=== PATIENT | male | born 1950 | race Caucasian/White ===

== ENCOUNTER 2021-10-19 09:54 | Emergency (ER) | payer OTHER ==
--- OUTSIDE RECORDS SUMMARY | 2021-10-19 09:59 | XMS REPORT | Continuity of Care Document ---
:1950 Author Organization [facility] t Address [address] [place] [address] Care Team Providers Name Role Phone Brandon Villarreal Attending Clinician Unavailable Payers Payer Name Policy Type Policy Number Effective Date Expiration Date S ource Problems This patient has no known problems. Allergies, Adverse Reactions, Alerts This patient has no known allergies or adverse reactions. Medications This patient has no known medications. Procedures This patient has no known procedures. Encounters Start End Encounter Admission Attending Care Care Encounter Source Date/Time Date/Time Type Type Clinicians Facility Department ID 2019-08-22 2019-08-22 Outpatient R Hwang STLS[facility] STLSJB [id number] NPI:[id number] 11:38:00 11:38:00 Sunil, [id number] [id number] Gianni Results Test Description Test Time Test Comments Results Result Sourc e Comments XR Chest Pa Lat Nata Guzman Pt STANDARD Name: SANDI BRO [address] Phys: Gian[place] [address] : 1950 Age: 69 SEX:M [phone] Exam Date: 08/22/19 Status: REG CLI Acct: [id number] Loc: [facility] Pt Unit #: [id number] Report #: [id number] CC: Gianni Villarreal MD IMAGING SERVICES REPORT Order # Category/Exam [id number] RAD/XR Chest Pa Lat STANDARD ([id number]): . Results EXAM: Chest PA and lateral: HISTORY: Bronchitis COMPARISON: None FINDINGS: Heart: Normal cardiac silhouette Aorta: Unremarkable Pulmonary vessels: Normal Costophrenic angles: Costophrenic angles are clear. Lungs: No consolidation or masses. Lungs are hyperinflated. Pneumothorax: No pneumothorax Osseous structures: No osseous abnormalities IMPRESSION: No acute cardiopulmonary process. Reported By: Hanh Wright MD Electronically Signed Date/Time: 08/22/19 1155 Technologist: Dictated Date/Time: 08/22/19 1155 Transcribed Date/Time:
[2021-10-19 11:38] LABS: SARS-COV-2 RT PCR NEGATIVE (NEGATIVE)
--- NOTE | 2021-10-19 11:39 | ER ---
Nurse's Notes [facility] Name: Blair Patterson Age: 71 yrs Sex: Male : 1950 Arrival Date: 10/19/2021 Time: 09:58 Bed 9 Private MD: Diagnosis: Bronchitis, not specified as acute or chronic;Cough Presentation: 10/19 10:08 Chief complaint: Patient states: "I've had bronchitis for almost 3 weeks now." Was seen ph at [place] and prescribed Augmentin and steroids with minimal relief, no respiratory distress noted, speaking in full sentences, reports persistent cough and congestion, denies fever or SOB. Coronavirus screen: Vaccine status: Patient reports receiving the 2nd dose of the covid vaccine. Ebola Screen: No symptoms or risks identified at this time. Initial Sepsis Screen: Does the patient meet any 2 criteria? No. Patient's initial sepsis screen is negative. Does the patient have a suspected source of infection? No. Patient's initial sepsis screen is negative. Risk Assessment: Do you want to hurt yourself or someone else? Patient reports no desire to harm self or others. Onset of symptoms was October 19, 2021. 10:08 Method Of Arrival: Ambulatory ph 10:08 Acuity: JULIO CESAR 3 ph Triage Assessment: 10:30 General: Appears in no apparent distress. comfortable, Behavior is calm, cooperative, ph appropriate for age, Denies fever. Pain: Denies pain. Neuro: No deficits noted. Respiratory: Reports cough that is. Derm: Skin is intact, is healthy with good turgor, Skin is pink, warm \\T\\ dry. Historical: - Allergies: 10:13 No Known Allergies; ph - PMHx: 10:13 None; ph - PSHx: 10:13 None; ph - Immunization history:: Adult Immunizations up to date. - Social history:: Smoking status: Patient denies any tobacco usage or history of. Screenin:15 Abuse screen: Denies threats or abuse. Denies injuries from another. Nutritional ph screening: No deficits noted. Tuberculosis screening: No symptoms or risk factors identified. Fall Risk None identified. Assessment: 12:03 Reassessment: Patient appears in no apparent distress at this time. Patient and/or ss family updated on plan of care and expected duration. Pain level reassessed. Patient is alert, oriented x 3, equal unlabored respirations, skin warm/dry/pink. Vital Signs: 10:08 BP 128 / 85; Pulse 66; Resp 18; Temp 97.0; Pulse Ox 98% on R/A; Weight 108.86 kg; ph Height 6 ft. 0 in. (182.88 cm); 10:08 Body Mass Index 32.55 (108.86 kg, 182.88 cm) ph ED Course: 09:58 Patient arrived in ED. rg4 10:04 Pelon Kasper MD is Attending Physician. xuan 10:12 Triage completed. ph 10:13 Arm band placed on Patient placed in an exam room. ph 10:17 Annabelle Alberto, RN is Primary Nurse. ph 10:24 COVID-19/FLU A+B/RSV (Document "Date of Onset" if Symptomatic) Sent. mb7 11:30 Patient has correct armband on for positive identification. ph 11:39 Bob Mendes MD is Referral Physician. xuan 12:03 No provider procedures requiring assistance completed. Patient did not have IV access ss during this emergency room visit. 12:13 Chest Pa And Lat (2 Views) XRAY In Process Unspecified. EDMS Administered Medications: 11:47 Drug: Zithromax (azithromycin) 500 mg Route: PO; ss 11:55 Follow up: Response: No adverse reaction ph Outcome: 11:39 Discharge ordered by . xuan 12:03 Discharged to home ambulatory. ss 12:03 Condition: good 12:03 Discharge instructions given to patient, Instructed on discharge instructions, follow up and referral plans. medication usage, Demonstrated understanding of instructions, follow-up care, medications, Prescriptions given X 4. 12:03 Patient left the ED. ss Signatures: Dispatcher [employer] EDMS Pelon Kasper MD MD cha Smirch, Shelby, RN RN Annabelle Alberto, CASIE RN Veronica Estrada rg4 Meg Cam mb7
--- NOTE | 2021-10-19 11:39 | EDPHYS ---
Physician Documentation [facility] Name: Blair Patterson Age: 71 yrs Sex: Male : 1950 Arrival Date: 10/19/2021 Time: 09:58 Bed 9 Private MD: ED Physician Pelon Kasper HPI: 10/19 10:53 This 71 yrs old Male presents to ER via Ambulatory with complaints of Cough, xuan Congestion, Runny Nose. 10:53 The patient or guardian reports cough, that is intermittent. Onset: The xuan symptoms/episode began/occurred 7 day(s) ago. Severity of symptoms: At their worst the symptoms were moderate, in the emergency department the symptoms are unchanged. Modifying factors: The symptoms are alleviated by nothing, the symptoms are aggravated by exertion. Associated signs and symptoms: The patient has no apparent associated signs or symptoms. The patient has experienced similar episodes in the past, a few times. Historical: - Allergies: 10:13 No Known Allergies; ph - PMHx: 10:13 None; ph - PSHx: 10:13 None; ph - Immunization history:: Adult Immunizations up to date. - Social history:: Smoking status: Patient denies any tobacco usage or history of. ROS: 10:54 Constitutional: Negative for fever, chills, and weight loss, Eyes: Negative for injury, xuan pain, redness, and discharge, ENT: Negative for injury, pain, and discharge, Neck: Negative for injury, pain, and swelling, Cardiovascular: Negative for chest pain, palpitations, and edema, Abdomen/GI: Negative for abdominal pain, nausea, vomiting, diarrhea, and constipation, Back: Negative for injury and pain, : Negative for injury, bleeding, discharge, and swelling, MS/Extremity: Negative for injury and deformity, Skin: Negative for injury, rash, and discoloration, Neuro: Negative for headache, weakness, numbness, tingling, and seizure, Psych: Negative for depression, anxiety, suicide ideation, homicidal ideation, and hallucinations, Allergy/Immunology: Negative for hives, rash, and allergies, Endocrine: Negative for neck swelling, polydipsia, polyuria, polyphagia, and marked weight changes, Hematologic/Lymphatic: Negative for swollen nodes, abnormal bleeding, and unusual bruising. 10:54 Respiratory: Positive for cough, with green sputum. Exam: 10:54 Constitutional: This is a well developed, well nourished patient who is awake, alert, xuan and in no acute distress. Head/Face: Normocephalic, atraumatic. Eyes: Pupils equal round and reactive to light, extra-ocular motions intact. Lids and lashes normal. Conjunctiva and sclera are non-icteric and not injected. Cornea within normal limits. Periorbital areas with no swelling, redness, or edema. ENT: Nares patent. No nasal discharge, no septal abnormalities noted. Tympanic membranes are normal and external auditory canals are clear. Oropharynx with no redness, swelling, or masses, exudates, or evidence of obstruction, uvula midline. Mucous membranes moist. Neck: Trachea midline, no thyromegaly or masses palpated, and no cervical lymphadenopathy. Supple, full range of motion without nuchal rigidity, or vertebral point tenderness. No Meningismus. Chest/axilla: Normal chest wall appearance and motion. Nontender with no deformity. No lesions are appreciated. Cardiovascular: Regular rate and rhythm with a normal S1 and S2. No gallops, murmurs, or rubs. Normal PMI, no JVD. No pulse deficits. Respiratory: Lungs have equal breath sounds bilaterally, clear to auscultation and percussion. No rales, rhonchi or wheezes noted. No increased work of breathing, no retractions or nasal flaring. Abdomen/GI: Soft, non-tender, with normal bowel sounds. No distension or tympany. No guarding or rebound. No evidence of tenderness throughout. Back: No spinal tenderness. No costovertebral tenderness. Full range of motion. Male : Normal genitalia with no discharge or lesions. Skin: Warm, dry with normal turgor. Normal color with no rashes, no lesions, and no evidence of cellulitis. MS/ Extremity: Pulses equal, no cyanosis. Neurovascular intact. Full, normal range of motion. Neuro: Awake and alert, GCS 15, oriented to person, place, time, and situation. Cranial nerves II-XII grossly intact. Motor strength 5/5 in all extremities. Sensory grossly intact. Cerebellar exam normal. Normal gait. Psych: Awake, alert, with orientation to person, place and time. Behavior, mood, and affect are within normal limits. 10:54 Respiratory: the patient does not display signs of respiratory distress, Respirations: normal, no acute changes, Breath sounds: bronchial sounds, that are mild, are scattered, Respiratory rate: 18 11:31 Musculoskeletal/extremity: ROM: no acute changes, intact in all extremities, xuan Circulation is intact in all extremities. Sensation intact. Compartment Syndrome exam of affected extremity: is normal. DVT Exam: No signs of deep vein thrombosis. no pain, no swelling, no tenderness, negative Homans' sign noted on exam, no appreciated bluish discoloration, no erythema, no increased warmth. Vital Signs: 10:08 BP 128 / 85; Pulse 66; Resp 18; Temp 97.0; Pulse Ox 98% on R/A; Weight 108.86 kg; ph Height 6 ft. 0 in. (182.88 cm); 10:08 Body Mass Index 32.55 (108.86 kg, 182.88 cm) ph MDM: 10:18 Patient medically screened. xuan 10:54 Differential Diagnosis: Obstructed Airway Bronchitis Influenza Upper Respiratory xuan Infection Viral Syndrome Pneumonia. Data reviewed: vital signs, nurses notes, lab test result(s), radiologic studies, plain films. Data interpreted: night monitor: not applicable for this patient encounter. rate is 66 beats/min, rhythm is regular, Pulse oximetry: on room air is 98 %. Test interpretation: by ED physician or midlevel provider: plain radiologic studies. Counseling: I had a detailed discussion with the patient and/or guardian regarding: the historical points, exam findings, and any diagnostic results supporting the discharge/admit diagnosis, lab results, radiology results. 10/19 10:21 Order name: COVID-19/FLU A+B/RSV (Document "Date of Onset" if Symptomatic) xuan 10/19 10:43 Order name: Chest Pa And Lat (2 Views) XRAY xuan Administered Medications: 11:47 Drug: Zithromax (azithromycin) 500 mg Route: PO; ss 11:55 Follow up: Response: No adverse reaction ph Disposition Summary: 10/19/21 11:39 Discharge Ordered Location: Home xuan Problem: new xuan Symptoms: have improved xuan Condition: Stable xuan Diagnosis - Bronchitis, not specified as acute or chronic xuan - Cough xuan Followup: xuan - With: Private Physician - When: 2 - 3 days - Reason: Recheck today's complaints, Continuance of care, Re-evaluation by your physician Followup: xuan - With: - When: 2 - 3 days - Reason: Recheck today's complaints, Continuance of care, Re-evaluation by your physician Discharge Instructions: - Discharge Summary Sheet xuan - Acute Bronchitis, Adult xuan - Cool Mist Vaporizer xuan - Acute Bronchitis, Adult, [id number] xuan - Upper Respiratory Infection, Adult, [id number] xuan - Cough, Adult, Adqw-xj-Ozcy xuan - Cough, Adult [facility] Forms: - Medication Reconciliation Form [facility] - Thank You Letter [facility] - Antibiotic Education [facility] - Prescription Opioid Use [facility] Prescriptions: - Medrol (Neno) 4 mg Oral Tablets, Dose Pack - take 1 tablet by ORAL route as directed - follow package instructions; 1 xuan packet; Refills: 0, Product Selection Permitted - Zithromax 500 mg Oral Tablet - take 1 tablet by ORAL route once daily for 5 days; 5 tablet; Refills: 0, [facility] Product Selection Permitted - Bromfed DM 2-30-10 mg/5 mL Oral syrup - take 7.5 milliliter by ORAL route every 6 hours; 180 milliliter; Refills: 0, [facility] Product Selection Permitted - albuterol sulfate 90 mcg/actuation Inhalation HFA aerosol inhaler - inhale 2 puff by INHALATION route every 6 hours; 1 Pump; Refills: 0, Product xuan Selection Permitted Signatures: Dispatcher [employer] Pelon Carreon MD MD cha Smirch, Shelby, CASIE RN Annabelle Schultz RN RN ph
[2021-10-19] MEDS ORDERED: AZITHROMYCIN 250 MG TAB ONE (11:46)
[2021-10-19 12:22] VITALS: BP 128/85; TEMP 97; O2SAT 98
--- NOTE | 2021-10-19 12:46 | RAD REPORT ---
EXAM DESCRIPTION: Tripp Tolentino (2 Views)10/19/2021 12:11 pm CLINICAL HISTORY: Cough COMPARISON: None FINDINGS: The lungs appear clear of acute infiltrate. The heart is normal size IMPRESSION: No acute abnormalities displayed
== END 2021-10-19 12:03 | disposition home or self-care (01) ==
LOC: ER 09:54
DX: J40 Bronchitis, not specified as acute or chronic (principal); Z20.822 Contact with and (suspected) exposure to COVID-19
CPT/HCPCS: 0241U; 71046; 99284

== ENCOUNTER 2024-06-25 09:11 | Emergency (ER) | payer OTHER ==
[2024-06-25] MEDS ORDERED: BENZONATATE 100 MG CAP PO ONE (09:31)
[2024-06-25] MEDS ORDERED: ALBUTEROL 2.5 MG/3 ML NEB SOL ONE (09:31)
[2024-06-25] MEDS ORDERED: IPRATROPIUM BROM 0.5MG/2.5ML ONE (09:31)
[2024-06-25 10:04] LABS: SARS-CoV-2 Antigen CONTROL BLUE LINE VIS/BG OK; SARS-CoV-2 Antigen Rapid Res Negative (Negative)
--- NOTE | 2024-06-25 10:49 | EDPHYS ---
Physician Documentation [facility] Name: Blair Patterson Age: 74 yrs Sex: Male : 1950 Arrival Date: 06/25/2024 Time: 09:11 Bed 7 Private MD: ED Physician Philippe Husain HPI: 06/25 09:30 This 74 yrs old Male presents to ER via Ambulatory with complaints of Cough. cp 09:30 The patient or guardian reports cough, with productive sputum. cp 09:30 Onset: The symptoms/episode began/occurred 1 week(s) ago. Severity of symptoms: in the emergency department the symptoms are unchanged, despite home interventions. Associated signs and symptoms: Pertinent positives: rhinorrhea, sore throat, Pertinent negatives: fever, vomiting. Historical: - Allergies: 09:25 No Known Allergies; iw - PSHx: 09:25 Appendectomy; Spinal surgery; iw - Immunization history:: Adult Immunizations up to date. - Infectious Disease History:: Denies. - Social history:: Smoking status: Patient/guardian denies using tobacco, but has a distant history of tobacco abuse. ROS: 09:35 Constitutional: Negative for body aches, chills, fever, poor PO intake, cp 09:35 Eyes: Negative for injury, pain, redness, and discharge, cp 09:35 ENT: Negative for drainage from ear(s), ear pain, difficulty swallowing, difficulty handling secretions, 09:35 Cardiovascular: Negative for chest pain, edema, palpitations, 09:35 Respiratory: Positive for cough, "sounds productive", shortness of breath, Negative for wheezing, 09:35 Abdomen/GI: Negative for abdominal pain, vomiting, diarrhea, constipation, 09:35 Neuro: Negative for altered mental status, headache, 09:35 All other systems are negative, Exam: 09:40 Constitutional: The patient appears in no acute distress, alert, awake, cp non-diaphoretic, non-toxic, well developed, well nourished, 09:40 Head/Face: Normocephalic, atraumatic. cp 09:40 Eyes: Periorbital structures: appear normal, Conjunctiva: normal, no exudate, no cp injection, Sclera: no appreciated abnormality, Lids and lashes: appear normal, bilaterally, 09:40 ENT: External ear(s): are unremarkable, Ear canal(s): are normal, clear, TM's: dullness, bilaterally, Nose: is normal, Mouth: Lips: moist, Oral mucosa: moist, Posterior pharynx: Airway: no evidence of obstruction, patent, Tonsils: no enlargement, no exudate, erythema, that is mild, exudate, is not appreciated, 09:40 Neck: ROM/movement: Meningeal signs: are not present, nuchal rigidity, is not appreciated, 09:40 Chest/axilla: Inspection: normal, 09:40 Cardiovascular: Rate: normal, 09:40 Respiratory: the patient does not display signs of respiratory distress, Respirations: normal, no use of accessory muscles, no retractions, labored breathing, is not present, Breath sounds: bronchial sounds, that are mild, are heard diffusely, stridor, is not appreciated, 09:40 Abdomen/GI: Inspection: abdomen appears normal, Palpation: abdomen is soft and non-tender, in all quadrants, 09:40 Neuro: Orientation: is normal, Mentation: is normal, Motor: moves all fours, Gait: is steady, at a normal pace, without difficulty, Vital Signs: 09:23 BP 126 / 81; Pulse 71; Resp 19; Temp 98.5; Pulse Ox 96% on R/A; Weight 108.86 kg; iw Height 6 ft. 0 in. ; Pain 0/10; 10:42 BP 106 / 74; Pulse 87; Resp 18 S; Pulse Ox 93% on R/A; aa5 10:56 Pulse 85; Resp 20 S; Pulse Ox 95% on R/A; aa5 09:23 Body Mass Index 32.55 (108.86 kg, 182.88 cm) iw 09:23 Pain Scale: Adult iw MDM: 09:15 Medical Screening Exam initiated cp 10:48 Data reviewed: vital signs, nurses notes, lab test result(s), radiologic studies, plain cp films, and as a result, I will discharge patient. 10:48 Differential Diagnosis: Bronchitis Influenza Pneumonia. I considered the following cp discharge prescriptions or medication management in the emergency department Medications were administered in the Emergency Department. See MAR. Counseling: I had a detailed discussion with the patient and/or guardian regarding the historical points, exam findings, and any diagnostic results supporting the discharge/admit diagnosis, lab results, radiology results, to return to the emergency department if symptoms worsen or persist or if there are any questions or concerns that arise at home. 10:53 Independent interpretation of the following test(s) in the Emergency Department X-Ray: cp My interpretation is chest xray negative for focal pneumonia. 06/25 09:27 Order name: SARS RAPID; Complete Time: 10:17 cp 06/25 10:17 Interpretation: Reviewed. cp 06/25 09:27 Order name: Strep cp 06/25 10:17 Interpretation: Reviewed. cp 06/25 09:27 Order name: Influenza Screen (a \\T\\ B); Complete Time: 10:32 cp 06/25 10:32 Interpretation: Reviewed. cp 06/25 09:27 Order name: RSV; Complete Time: 10:32 cp 06/25 10:32 Interpretation: Reviewed. cp 06/25 10:07 Order name: Throat Culture EDMS 06/25 09:27 Order name: XRAY Chest Pa And Lat (2 Views) cp Administered Medications: 09:39 Drug: Tessalon Perle PO 200 mg PO once Route: PO; aa5 10:56 Follow up: Response: No adverse reaction aa5 09:39 Drug: Albuterol Inhalation 2.5 mg Inhalation once Route: Inhalation; aa5 09:39 Drug: Ipratropium Inhalation Aerosol 0.5 mg Inhalation once Route: Inhalation; aa5 Disposition: 11:51 Co-signature as Attending Physician, Philippe Husain MD I reviewed the patient's care rn provided by the Advanced Practice Provider and agree with the diagnosis and treatment plan. Disposition Summary: 06/25/24 10:48 Discharge Ordered Notes: Location: Home cp Problem: new cp Symptoms: have improved cp Condition: Stable cp Diagnosis - Cough cp Followup: cp - With: Private Physician - When: 2 - 3 days - Reason: Worsening of condition Discharge Instructions: - Discharge Summary Sheet cp - Cough, Adult cp Forms: - Medication Reconciliation Form cp - Antibiotic Education cp - Prescription Opioid Use cp - Patient Portal Instructions cp - Leadership Thank You Letter cp Prescriptions: - Bromfed DM 2-30-10 mg/5 mL Oral syrup - administer 10 milliliter ORAL route every 6 hours as needed for cold symptoms; cp 240 milliliter; Refills: 0, Product Selection Permitted - albuterol sulfate 90 mcg/actuation Inhalation HFA Aerosol Inhaler - inhale 1 puff INHALATION route every 4-6 hours administer via ventilator; 1 cp unit; Refills: 0, Product Selection Permitted - Zithromax Z-Neno 250 mg Oral Tablet - take 1 tablet ORAL route as directed for 5 days Day 1 - take two (2) tablets cp one time. Day 2, 3, 4 , 5 take one (1) tablet once daily.; 6 tablet; Refills: 0, Product Selection Permitted - Medrol (Neno) 4 mg Oral Tablets, Dose Pack - take 1 tablet ORAL route as directed - follow package instructions; 1 packet; cp Refills: 0, Product Selection Permitted Signatures: Dispatcher [employer] EDMS Rena Ellsworth, CASIE RN Philippe Thompson MD MD rn Calderon, Audri, RN RN aa5 Pelon Benton PA PA cp Corrections: (The following items were deleted from the chart) 09: 09:27 Chest Pa And Lat (2 Views)+RAD.RAD.BRZ ordered. EDMS EDMS 09:27 SARS-COV-2 Antigen Rapid+I.LAB.BRZ ordered. EDMS EDMS 09:27 Group A Streptococcus Rapid Sc+BA.LAB.BRZ ordered. EDMS EDMS : 09:27 Influenza Screen (A \\T\\ B)+BA.LAB.BRZ ordered. EDMS EDMS 09:27 Respiratory Syncytial Virus Ag+BA.LAB.BRZ ordered. EDMS EDMS
--- NOTE | 2024-06-25 10:49 | ER ---
Nurse's Notes [facility] Name: Blair Patterson Age: 74 yrs Sex: Male : 1950 Arrival Date: 06/25/2024 Time: 09:11 Bed 7 Private MD: Diagnosis: Cough Presentation: 06/25 09:23 Chief complaint: Patient states: cough X 1 week and SOB, no fever, + runny nose. iw Coronavirus screen: Client presents with at least one sign or symptom that may indicate coronavirus-19. Ebola Screen: No symptoms or risks identified at this time. Initial Sepsis Screen: Does the patient meet any 2 criteria? No. Patient's initial sepsis screen is negative. Does the patient have a suspected source of infection? No. Patient's initial sepsis screen is negative. Risk Assessment: Do you want to hurt yourself or someone else? Patient reports no desire to harm self or others. Onset of symptoms was June 18, 2024. 09:23 Method Of Arrival: Ambulatory iw 09:23 Acuity: JULIO CESAR 3 iw Historical: - Allergies: 09:25 No Known Allergies; iw - PSHx: : Appendectomy; Spinal surgery; iw - Immunization history:: Adult Immunizations up to date. - Infectious Disease History:: Denies. - Social history:: Smoking status: Patient/guardian denies using tobacco, but has a distant history of tobacco abuse. Screenin:30 [facility] ED Fall Risk Assessment (Adult) History of falling in the last 3 months, aa5 including since admission No falls in past 3 months (0 pts) Confusion or Disorientation No (0 pts) Intoxicated or Sedated No (0 pts) Impaired Gait No (0 pts) Mobility Assist Device Used No (0 pt) Altered Elimination No (0 pt) Score/Fall Risk Level 0 - 2 = Low Risk Oriented to surroundings, Maintained a safe environment, Educated pt \T\ family on fall prevention, incl call for assistance when getting out of bed. Abuse screen: Denies threats or abuse. Nutritional screening: No deficits noted. Tuberculosis screening: No symptoms or risk factors identified. Assessment: 09:30 General: Appears uncomfortable, Behavior is calm, cooperative. Pain: Denies pain. aa5 Neuro: Level of Consciousness is awake, alert, obeys commands, Oriented to person, place, time, situation. Cardiovascular: Patient's skin is warm and dry. Respiratory: Reports cough and intermittent SOB x 1 week Airway is patent Respiratory effort is even, unlabored, Respiratory pattern is regular, symmetrical, Breath sounds with wheezes bilaterally. GI: No signs and/or symptoms were reported involving the gastrointestinal system. : No signs and/or symptoms were reported regarding the genitourinary system. EENT: Reports nasal discharge that is watery. Derm: Skin is pink, warm \T\ dry. Musculoskeletal: Range of motion: intact in all extremities. 10:56 Reassessment: Patient is alert, oriented x 3, equal unlabored respirations, skin aa5 warm/dry/pink. Vital Signs: 09:23 BP 126 / 81; Pulse 71; Resp 19; Temp 98.5; Pulse Ox 96% on R/A; Weight 108.86 kg; iw Height 6 ft. 0 in. ; Pain 0/10; 10:42 BP 106 / 74; Pulse 87; Resp 18 S; Pulse Ox 93% on R/A; aa5 10:56 Pulse 85; Resp 20 S; Pulse Ox 95% on R/A; aa5 09:23 Body Mass Index 32.55 (108.86 kg, 182.88 cm) iw 09:23 Pain Scale: Adult iw ED Course: 09:13 Patient arrived in ED. mr 09:15 Pelon Benton PA is PHCP. cp 09:15 Philippe Husain MD is Attending Physician. cp 09:16 Miladys Slater, RN is Primary Nurse. aa5 09:25 Triage completed. iw 09:30 Patient has correct armband on for positive identification. Bed in low position. Call aa5 light in reach. Side rails up X 1. Pulse ox on. NIBP on. 09:30 Arm band placed on. aa5 09:35 COVID swab sent to lab. Flu and/or RSV swab sent to lab. Strep swab sent to lab. aa5 10:17 XRAY Chest Pa And Lat (2 Views) In Process Unspecified. EDMS 10:56 No provider procedures requiring assistance completed. Patient did not have IV access aa5 during this emergency room visit. Administered Medications: 09:39 Drug: Tessalon Perle PO 200 mg PO once Route: PO; aa5 10:56 Follow up: Response: No adverse reaction aa5 09:39 Drug: Albuterol Inhalation 2.5 mg Inhalation once Route: Inhalation; aa5 09:39 Drug: Ipratropium Inhalation Aerosol 0.5 mg Inhalation once Route: Inhalation; aa5 Medication: 09:42 VIS not applicable for this client. aa5 Outcome: 10:48 Discharge ordered by . cp 10:56 Patient left the ED. aa5 10:56 Discharged to home ambulatory, aa5 10:56 Condition: stable 10:56 Discharge instructions given to patient, Instructed on discharge instructions, follow up and referral plans. medication usage, Demonstrated understanding of instructions, follow-up care, medications, Prescriptions given X 4, Signatures: Dispatcher [employer] EDMS Meg Padgett, Reg Reg mr Rena Ellsworth RN RN iw Miladys Slater RN RN aa5 Pelon Benton PA PA cp Corrections: (The following items were deleted from the chart) 10:44 10:42 Pulse 87bpm; Resp 18bpm; Spontaneous; Pulse Ox 93% RA; aa5 aa5 10:57 10:56 Patient left the ED. aa5 aa5
--- NOTE | 2024-06-25 11:31 | RAD REPORT ---
EXAMINATION: TWO VIEW CHEST XR CLINICAL INDICATION: Male, 74 years old. [facility] MA[facility] COUGH Bed Name: 7 TECHNIQUE: 2 view radiographs of the chest were performed. COMPARISON: 01/07/2024 FINDINGS: Background chronic interstitial changes. Improvement of left basilar opacities now with mild residual streaky opacities, could reflect residual atelectasis. No pneumothorax or sizable effusion. The heart is normal in size. Mediastinal contours are unremarkable. IMPRESSION: Residual left basilar mild opacity is improved since prior exam, may reflect improving airspace disea se or residual atelectasis.
[2024-06-27 16:00] VITALS: BP 106/74; TEMP 98.5; O2SAT 93
== END 2024-06-25 10:56 | disposition home or self-care (01) ==
LOC: ER 09:11
DX: R05.9 Cough, unspecified (principal); Z87.891 Personal history of nicotine dependence; Z11.52 Encounter for screening for COVID-19
CPT/HCPCS: 87070; 36415; 87081; 87807; 87804 ×2; 71046; 99284; 87811; J7613; J7644